=== PATIENT | female | born 1970 | race Caucasian/White ===

== ENCOUNTER 2016-09-30 14:15 | Observation (INO) ==
--- NOTE | 2016-09-30 15:04 | Emergency Department Note ---
Disposition Clinical Impression: Shortness of breath Chest pain Qualifiers: Chest pain type: unspecified Qualified Code(s): R07.9 - Chest pain, unspecified Disposition: Admitted As Inpatient Condition: Good Referrals: NO,PCP [Primary Care Provider] - Forms: ED Satisfaction Letter Time of Disposition: 17:58 SOB HPI - General Chief Complaint: ED Shortness of Breath/Dyspnea Stated Complaint: RON Time Seen by Provider: 09/30/16 14:42 Source: patient Mode of arrival: ambulatory Limitations: no limitations Nursing Notes Reviewed: Yes Vital Signs Reviewed: Yes - History of Present Illness 46-year-old female pack per day smoker presents with difficulty breathing. States over past 4 days she has had difficulty breathing with pleuritic chest pain. She denies any productive cough. Feels like something's there but she is not able to bring it up. She denies any recent fever, nausea, vomiting, abdominal pain. She is concerned because her brother recently had a stroke and a blood clot in his lower leg. She states roughly a few weeks ago she noticed a knot in her right lower leg believing that made been a clot as well. Since then that is resolved. She denies any calf tenderness. She denies any oral contraceptive use, long-distance travel, recent surgery or hospitalization. She is unemployed and does live a sedentary lifestyle. No known active cancer or hemoptysis. Her heart rate on arrival is 106. She is not hypoxic. She is low risk per Wells score of 1.5. D dimer ordered. 2 view chest x-ray of basic labs with the EKG. Patients in agreement with this plan. - Related Data Allergies Allergy/AdvReac Type Severity Reaction Status Date / Time Erythromycin Base Allergy Difficulty Verified 09/30/16 14:20 Breathing All systems ED: reviewed and negative except as stated. Constitutional: Denies: fever, chills Cardiovascular: Reports: chest pain. Denies: dyspnea on exertion Respiratory: Reports: cough, dyspnea Gastrointestinal: Denies: abdominal pain, nausea, vomiting, diarrhea Genitourinary: Denies: urgency, dysuria Musculoskeletal: Denies: back pain Integumentary: Denies: rash, abrasion Neurological: Denies: headache Psychiatric: Reports: anxiety Past Medical History - Past Medical History Attestation: Yes The following information was validated with the patient. Source: patient Medical history: Reports: no medical history Psychiatric history: Reports: anxiety, depression - Social History Smoking Status: Current every day smoker Alcohol use: Reports: none Drug use: Reports: none Physical Exam - General Limitations: no limitations General appearance: alert, in no apparent distress - Head Head exam: atraumatic, normocephalic, normal inspection - Eye Eye exam: Present: normal appearance, PERRL, EOMI - ENT ENT exam: normal exam, normal oropharynx, mucous membranes moist - Neck Neck exam: Present: normal inspection, full ROM, trachea midline - Chest Chest inspection: Present: normal inspection, symmetric chest wall rise. Absent : tenderness - Respiratory Respiratory exam: Present: normal lung sounds bilaterally, other (Poor respiratory effort due to discomfort) - Cardiovascular Cardiovascular exam: Present: regular rate, normal rhythm, normal heart sounds. Absent: systolic murmur, diastolic murmur - Abdominal Exam Abdominal exam: Present: soft, Non-Tender, normal bowel sounds. Absent: tenderness, distention, guarding, rebound, rigidity - Extremities Exam Extremities exam: Present: normal inspection, full ROM, normal capillary refill. Absent: tenderness, pedal edema, calf tenderness - Back Exam Back exam: Present: normal inspection, full ROM. Absent: tenderness, CVA tenderness (R), CVA tenderness (L) - Neurological Exam Neurological exam: Present: alert, oriented X3 - Psychiatric Psychiatric exam: Present: normal affect, normal mood - Skin Skin exam: Present: warm, dry, intact, normal color Course - Reevaluation(s) Reevaluation #1: CT of the chest was sub optimal to evaluate for pulmonary embolism and inconclusive. Areas of questionable filling defects. Recommend rescan in the right clinical setting and likely admission. Patient continues to have chest pain and shortness of breath. She is not hypoxic. Heart rate has come down. Give her one dose of Lovenox 1 milligram per kilogram and admit for further observation. Patients in agreement with this plan. Chest X-Ray 09/30/16 14:57 IMPRESSION: No evidence for acute cardiopulmonary process. D/ / Cayden Pisano MD / Cayden Pisano MD Interpreting Provider: Cayden Pisano MD Chest CTA 09/30/16 15:38 IMPRESSION: 1. Suboptimal CTA for evaluation of pulmonary embolism. Questionable filling defects in segmental branches bilaterally may simply represent artifact due to mixing of contrast. If pretest probability for pulmonary embolism is high, consider repeat CTA after 8-12 hours or a follow-up nuclear medicine V/Q scan. 2. Mild ground-glass attenuation at the bilateral lung apices. Atelectasis or mild interstitial change may be considered. Developing pneumonitis considered less likely. D/ / Forrest Ojeda MD / Forrest Ojeda MD Interpreting Provider: Forrest Ojeda MD Time: 17:58 - Consultations Consultation #1: Spoke with on-call hospitalist aly Winn to admit for chest pain, dyspnea , and suspected PE. No further orders at this time Time: 18:07 Vital Signs Temperature 98.5 F 09/30/16 14:16 Pulse Rate 106 09/30/16 14:16 Respiratory Rate 16 09/30/16 14:16 Blood Pressure 138/84 09/30/16 14:16 O2 Sat by Pulse Oximetry 97 09/30/16 14:16 Temperature 98.5 F 09/30/16 14:16 Pulse Rate 71 09/30/16 17:48 Respiratory Rate 16 09/30/16 17:48 Blood Pressure 119/71 09/30/16 17:48 O2 Sat by Pulse Oximetry 2 09/30/16 17:48 Oxygen Delivery Oxygen Delivery Room Air Shortness of Breath/Dyspnea - Medical Records Medical records reviewed: Yes I reviewed the patient's medical records. - Lab Data Lab results reviewed: Yes I reviewed the patient's lab results. Result diagrams: 09/30/16 15:14 09/30/16 15:14 Lab Results 09/30/16 09/30/16 09/30/16 Range/Units 15:14 15:14 15:14 WBC 9.3 (4.3-11.1) K/mcL RBC 4.47 (3.82-4.97) M/mcL Hgb 13.5 (11.5-15.4) g/dL Hct 40.1 (35.3-44.9) % MCV 89.7 (83.0-100.0) fL MCH 30.2 (28.0-33.3) pg MCHC 33.7 (31.6-35.5) g/dL RDW 12.5 (11.5-14.5) % Plt Count 191 (140-400) K/mcL MPV 9.2 L (9.4-12.4) fL Immature Gran % 0.3 (0-4) % Seg Neutrophils % 67.0 % Lymphocytes % 24.3 % Monocytes % 7.3 % Eosinophils % 0.8 % Basophils % 0.3 % Neutrophils # 6.3 (1.6-8.9) K/mcL Lymphocytes # 2.3 (0.6-4.6) K/mcL Monocytes # 0.7 (0.0-1.3) K/mcL Eosinophils # 0.1 (0.0-0.6) K/mcL Basophils # 0.0 (0.0-0.2) K/mcL Immature Plt Fraction 2.2 (1.1-6.1) % D-Dimer 1687 H (0-500) ng/mLFEU Sodium 137 (136-145) mEq/L Potassium 4.0 (3.5-4.5) mEq/L Chloride 105 (98-109) mEq/L Carbon Dioxide 27 (19-29) mEq/L BUN 8 (7-20) mg/dL Creatinine 0.85 (0.57-1.11) mg/dL Est GFR ( Amer) > 60 (> 60) Est GFR (Non-Af Amer) > 60 (> 60) BUN/Creatinine Ratio 9 (6-26) Glucose 134 H (70-99) mg/dL Calculated Osmolality 284 (280-300) Calcium 8.8 (8.6-10.8) mg/dL - Radiology Data Radiology results reviewed: Yes I reviewed the patient's radiology results. Chest X-Ray 09/30/16 14:57 IMPRESSION: No evidence for acute cardiopulmonary process. D/ / Cayden Pisano MD / Cayden Pisano MD Interpreting Provider: Cayden Pisano MD Chest CTA 09/30/16 15:38 IMPRESSION: 1. Suboptimal CTA for evaluation of pulmonary embolism. Questionable filling defects in segmental branches bilaterally may simply represent artifact due to mixing of contrast. If pretest probability for pulmonary embolism is high, consider repeat CTA after 8-12 hours or a follow-up nuclear medicine V/Q scan. 2. Mild ground-glass attenuation at the bilateral lung apices. Atelectasis or mild interstitial change may be considered. Developing pneumonitis considered less likely. D/ / Forrest Ojeda MD / Forrest Ojeda MD Interpreting Provider: Forrest Ojeda MD - EKG Data EKG attestation: Yes I reviewed and interpreted this EKG. EKG results narrative: EKG performed 1447, normal sinus rhythm 98 bpm normal axis good R-R wave progression, no ST elevations or depression, no T wave inversion. Intervals are within normal limits. No old EKG for comparison. No acute ischemic changes.
[2016-09-30 15:20] LABS: Basophils % 0.3 %; Eosinophils # 0.1 K/mcL (0.0-0.6); Eosinophils % 0.8 %; Hematocrit 40.1 % (35.3-44.9); Hemoglobin 13.5 g/dL (11.5-15.4); Immature Granulocytes % 0.3 % (0-4); Immature Platelets 2.2 % (1.1-6.1); Lymphocytes # 2.3 K/mcL (0.6-4.6); Lymphocytes % 24.3 %; Mean Corpuscular HGB Conc 33.7 g/dL (31.6-35.5); Mean Corpuscular Hemoglobin 30.2 pg (28.0-33.3); Mean Corpuscular Volume 89.7 fL (83.0-100.0); Mean Platelet Volume 9.2 fL (9.4-12.4); Monocytes # 0.7 K/mcL (0.0-1.3); Monocytes % 7.3 %; Neutrophils # 6.3 K/mcL (1.6-8.9); Platelet Count 191 K/mcL (140-400); Red Blood Count 4.47 M/mcL (3.82-4.97); Red Cell Distribution Width 12.5 % (11.5-14.5)
[2016-09-30 15:44] LABS: BUN/Creatinine Ratio 9 (6-26); Blood Urea Nitrogen 8 mg/dL (7-20); Calcium 8.8 mg/dL (8.6-10.8); Carbon Dioxide 27 mEq/L (19-29); Chloride 105 mEq/L (98-109); Glucose 134 mg/dL (70-99); Osmolality,Calculated 284 (280-300); Sodium 137 mEq/L (136-145); eGFR For African Americans > 60 (> 60); eGFR For Non-African Americans > 60 (> 60)
[2016-09-30] MEDS ORDERED: *HR* Enoxaparin 120 MG/0.8 ML SYRINGE SQ STA (17:54)
--- NOTE | 2016-09-30 17:57 | Emergency Department Note ---
START Narrative - START START: I examined this patient and my medical decision-making was reviewed with the GYM MANAGER/PA/Advanced Practice Nurse/Resident Physician. I agree with the documented findings, disposition and treatment plan as described except to the extent set forth below. CT was inconclusive for pulmonary embolus. There were areas that were concerning for possible PE. Based on her symptoms and chief complaint I feel it best we admit the patient and start her on Lovenox and they can repeat a CT scan tomorrow or do a VQ scan. She also needs evaluated for this chest pain.
[2016-09-30 18:32] LABS: INR 1.1; Prothrombin Time 11.7 Seconds (9.4-12.1)
[2016-09-30 18:34] LABS: Activated Partial Thrombo Time 26.4 Seconds (26.0-36.0)
[2016-09-30] MEDS ORDERED: Acetaminophen 325 MG TABLET PO PRN (20:46)
[2016-09-30] MEDS ORDERED: Naloxone 0.4 MG/ML INJ IVP PRN (20:46)
[2016-09-30] MEDS ORDERED: Ondansetron 4 MG/2 ML VIAL IVP PRN (20:46)
--- NOTE | 2016-09-30 21:41 | Internal Med History&Physical ---
<Eleazar Nolen - Last Filed: 09/30/16 21:47> Date of Encounter: 09/30/16 Time of Encounter: 21:31 Assessment and Plan (1) Pulmonary embolism Current visit: Yes Status: Suspected Suspected. History is strongly suspicious given her shortness of breath that woke her up out of sleep, pleuritic chest pain, smoking history, obesity, brother with blood clots. CTA of the chest was inconclusive. Given that suspicion is high for blood clots we will treat with Lovenox 1 mg/kg twice a day. We will obtain bilateral lower extremity ultrasound, and if negative will repeat CTA in the morning. Patient is hemodynamically stable. Qualifiers: Pulmonary embolism type: other Chronicity: unspecified Acute cor pulmonale presence: without acute cor pulmonale Qualified Code(s): I26.99 - Other pulmonary embolism without acute cor pulmonale (2) Tobacco abuse Current visit: Yes Status: Acute Strongly suggested to the patient that she quit smoking. Will order nicotine patch. (3) DVT prophylaxis Current visit: Yes Status: Acute Patient is fully anticoagulated with Lovenox 1 mg/kg twice a day. Internal Medicine - H&P: HPI Chief complaint: Dyspnea Admitted From: Emergency Dept Plans for Post Hospital Care: Home History of present illness: Ms. Mattson is a 46 year old female with no significant medical history presents with shortness of breath and pleuritic chest pain. Patient states that her symptoms began all of a sudden 4 days ago and her shortness of breath woke her up from sleep. She reports shortness of breath at rest and with exertion. She reports feeling of phlegm in her throat that she cannot clear. She reports pain in the center of her chest when taking a deep breath or coughing. She denies sputum production. She reports that she had a "knot" in her right lower extremity that she describes as a small hard circular area on her calf with some mild surrounding erythema. She denies pain in her calf, leg swelling or erythema. She is a smoker, does not use oral contraceptives she denies hemoptysis, history of malignancy, recent surgery, recent travel or long car rides or plane rides. Past Med Surg Social Fam HX - Past Medical History Medical history: no medical history Psychiatric history: anxiety, depression - Past Surgical History Surgical History: , hysterectomy - Social History Smoking Status: Current every day smoker Alcohol use: none Drug use: none - Family History Father History Unknown: Yes Brother Living Status: Still Living Hx Family Medical Disorders: Yes (Stroke/Blood clot) Internal Medicine - H&P: Meds RX: No Known Home Drugs 09/30/16 [History] Allergies Erythromycin Base Allergy (Verified 09/30/16 14:20) Difficulty Breathing All Systems PM: A 10-system review of systems was performed and is negative for pertinent findings except as documented above in the HPI. - Constitutional Constitutional: no chills, no fever(s) - EENT Eyes: no blurry vision, no change in vision Nose, mouth and throat: no sinus pain, no sinus pressure, no sore throat - Cardiovascular Cardiovascular ROS IM: chest pain, dyspnea, dyspnea on exertion, orthopnea, no edema, no syncope - Respiratory Respiratory: cough, dyspnea, dyspnea on exertion, pain on inspiration, chest congestion, pain with cough, no hemoptysis, no wheezing, no excessive phlegm production, no change in phlegm color - Gastrointestinal Gastrointestinal: no abdominal pain, no diarrhea, no hematemesis, no hematochezia, no melena, no nausea, no vomiting - Genitourinary Genitourinary: no dysuria, no urinary frequency, no urinary hesitancy, no urinary incontinence - Musculoskeletal Musculoskeletal ROS IM: no numbness, no tingling - Integumentary Integumentary IM: new lesions, no erythema - Neurological Neurological ROS: no dizziness, no numbness, no tremor(s) - Psychiatric Psychiatric: no anxiety, no depression - Hematologic/Lymphatic Hematologic/Lymphatic: no easy bleeding, no easy bruising - Constitutional Vitals: Temp Pulse Resp BP Pulse Ox 98.7 F 84 15 128/87 95 09/30/16 19:41 09/30/16 19:41 09/30/16 19:41 09/30/16 19:41 09/30/16 19:41 General appearance: Present: A&O X 3, pleasant, no acute distress - Head Head exam: Present: atraumatic, normal inspection, normocephalic - Eye Eye exam: Present: EOMI, PERRL - ENT ENT exam: Present: mucous membranes moist - Respiratory Respiratory exam: Present: CTAB. Absent: rales, rhonchi, wheezes - Cardiovascular Cardiovascular exam: Present: RRR. Absent: gallop, rubs, systolic murmur - GI/Abdominal GI/Abdominal exam: Present: normal bowel sounds, soft. Absent: distended, tenderness - Extremities Exam Extremities exam: Present: warm. Absent: calf tenderness, pedal edema, tenderness Additional comments: Homans sign negative - Neurological Exam Neurological exam: Present: alert, CN II-XII intact, oriented X3, no focal deficits - Skin Skin exam: Present: dry, intact, warm Internal Med - H&P Results - Labs CBC & Chem 7: 09/30/16 15:14 09/30/16 15:14 <Antonio Virk - Last Filed: 09/30/16 23:03> Date of Encounter: 09/30/16 - Constitutional Vitals: Temp Pulse Resp BP Pulse Ox 98.7 F 84 15 128/87 95 09/30/16 19:41 09/30/16 19:41 09/30/16 19:41 09/30/16 19:41 09/30/16 19:41 General appearance: Present: A&O X 3, pleasant, no acute distress - Eye Eye exam: Present: PERRL. Absent: scleral icterus - Neck Neck exam general surgery: Present: full ROM, supple. Absent: tenderness - Respiratory Respiratory exam: Present: CTAB. Absent: rales, rhonchi, wheezes Additional comments: + splinting and pain with deep inspiration - Cardiovascular Cardiovascular exam: Present: RRR, +S1, +S2. Absent: diastolic murmur, systolic murmur - GI/Abdominal GI/Abdominal exam: Present: soft. Absent: tenderness - Extremities Exam Extremities exam: Present: normal capillary refill. Absent: calf tenderness, joint swelling - Back Exam Back exam: Present: normal inspection. Absent: CVA tenderness (L), CVA tenderness (R) - Neurological Exam Neurological exam: Present: no focal deficits - Psychiatric Psychiatric exam: Present: normal affect, normal mood - Skin Skin exam: Present: dry, warm. Absent: rash Internal Med - H&P Results - Labs CBC & Chem 7: 09/30/16 15:14 09/30/16 15:14 - Diagnostic Studies Chest x-ray Status: image reviewed by me (negative) - Attending Attestation I discussed the patient [place], PMH, ROS, lab data, and exam findings with Dr. Nolen. I then saw and examined patient independently as well. Patient history is very concerning for PE. Exam is also concerning with +splinting and pleuritic CP with deep inspiration. I suspect there is a familial clotting disorder given her brother (42 yo) with massive stroke due to clot and patient' s presenting history. Furthermore, her mother recently due to cardiac arrest -- no autopsy performed. I agree with full anticoagulation for now while pursuing LE Dopplers followed by repeat CTA if necessary. If it is determined that patient truly has PE/DVT, I recommend outpatient hypercoagulable work-up by hematology. Other than my comments noted above and exam findings, I agree with Dr. Nolen's assessment and plan.
[2016-09-30] MEDS: Nicotine 21 MG PATCH.TD24 TD SCH (22:03)
[2016-10-01] MEDS ORDERED: *HR* Enoxaparin 120 MG/0.8 ML SYRINGE SQ SCH (06:00)
[2016-10-01 06:03] LABS: Basophils % 0.6 %; Eosinophils # 0.2 K/mcL (0.0-0.6); Eosinophils % 3.1 %; Hematocrit 41.2 % (35.3-44.9); Hemoglobin 13.5 g/dL (11.5-15.4); Immature Granulocytes % 0.3 % (0-4); Lymphocytes # 2.8 K/mcL (0.6-4.6); Lymphocytes % 40.6 %; Mean Corpuscular HGB Conc 32.8 g/dL (31.6-35.5); Mean Corpuscular Hemoglobin 30.1 pg (28.0-33.3); Mean Platelet Volume 9.4 fL (9.4-12.4); Monocytes # 0.7 K/mcL (0.0-1.3); Monocytes % 9.7 %; Neutrophils # 3.1 K/mcL (1.6-8.9); Platelet Count 180 K/mcL (140-400); Red Blood Count 4.48 M/mcL (3.82-4.97); Red Cell Distribution Width 12.8 % (11.5-14.5); Segmented Neutrophils % 45.7 %
[2016-10-01 06:04] LABS: INR 1.1; Prothrombin Time 11.6 Seconds (9.4-12.1)
[2016-10-01 06:07] LABS: Activated Partial Thrombo Time 25.4 Seconds (26.0-36.0)
[2016-10-01 06:20] LABS: BUN/Creatinine Ratio 9 (6-26); Blood Urea Nitrogen 8 mg/dL (7-20); Calcium 8.7 mg/dL (8.6-10.8); Carbon Dioxide 28 mEq/L (19-29); Chloride 104 mEq/L (98-109); Glucose 131 mg/dL (70-99); Magnesium 2.1 mg/dL (1.6-2.6); Osmolality,Calculated 286 (280-300); Potassium 4.3 mEq/L (3.5-4.5); Sodium 138 mEq/L (136-145); eGFR For African Americans > 60 (> 60); eGFR For Non-African Americans > 60 (> 60)
[2016-10-01] MEDS: Nicotine 21 MG PATCH.TD24 TD SCH (08:40)
[2016-10-01 08:44] VITALS: BP 117/80
--- NOTE | 2016-10-01 10:19 | Discharge Summary ---
<Jerman Baptiste - Last Filed: 10/01/16 11:50> Date of Encounter: 10/01/16 Time of Encounter: 09:45 - Discharge Diagnosis (1) Pulmonary embolism Priority: Primary Status: Suspected Comments: Patient has a suspected pulmonary embolism. History is strongly suspect suspicious. She states that she has pleuritic chest pain, and she had tachycardia upon admission. -She also has an older brother with a history of blood clots. -CTA of the chest was inconclusive. -D dimer elevated at 1687. -V/Q scan performed, and revealed high probability of PE. -Patient was treated with Lovenox 1 mg/kg twice a day. -Patient will start taking Xarelto today. Qualifiers: Pulmonary embolism type: other Chronicity: unspecified Acute cor pulmonale presence: without acute cor pulmonale Qualified Code(s): I26.99 - Other pulmonary embolism without acute cor pulmonale (2) Shortness of breath Priority: Secondary Status: Acute Comments: Patient admitted to having shortness of breath this morning, although she states shortness of breath has improved since her admission. She denies having a productive cough, but she feels as if something is stuck in the throat. (3) Chest pain Priority: Secondary Status: Acute Qualifiers: Chest pain type: unspecified Qualified Code(s): R07.9 - Chest pain, unspecified (4) DVT prophylaxis Priority: Secondary Status: Acute Comments: Doppler deomstrated DVT in lower leg. -Patient prescribed Xarelto 15 mg BID x 21 days, then 20 mg once daily x 9 days. -Follow up with PCP, possible workup for oncology. - Discharge Medications Home Medications: No Known Home Drugs 09/30/16 [History] Allergies/Adverse Reactions: Allergies Erythromycin Base Allergy (Verified 09/30/16 14:20) Difficulty Breathing Procedures/tests Complete & Pending: Procedures Performed prior 72 hours Category Date Time Status VQ Scan [NM pul vent and perfuse] [NM] Stat Exams 10/01/16 07:44 Ordered Venous Doppler [EV venous imaging LE BI] Routine Y 09/30/16 21:12 Ordered Date of admission: 09/30/16 18:18 Primary care physician: PCP NO Discharging clinician: Jerman Baptiste Anticipated date of discharge: 10/01/16 - Patient Status Disposition: Home, Self-Care Condition: Good Functional capacity at discharge: independent ambulation - Discharge Instructions Instructions: Rivaroxaban (By mouth), Pulmonary Embolism (DC), Deep Venous Thrombosis (DC) Follow Up With: Ann Donahue CNP [Advanced Practice Nurse] - 10/06/16 2:30 pm (Please follow up as schedule..and arrive at 2pm to fill out some papers and bring your medecine bottles with you. and please try not to miss the appointment to get established a pcp. and call if you can not make to the appt.) NO,PCP [Primary Care Provider] - - Diet and Activity Activity: increase activity as tolerated Diet: advance to your usual diet Hospital course: Ms. Mattson is a 46 year old female who initially presented to the hospital with the chief complaint of difficulty breathing. She is a pack per day smoker. She stated that over the past 4 days she had had difficulty breathing with pleuritic chest pain. Patient did not have a productive cough. She stated that she felt as if something was stuck in the back of her throat like phlegm, but she was unable to bring it up. She denied having any fever, nausea , vomiting, or abdominal pain. When patient was admitted to the hospital she expressed concern because her brother recently had a stroke and a blood clot in his lower leg. She admitted that several weeks back, she had noticed a knot in her right lower leg and believed to be a clot. Since then this has resolved. When she was admitted, she had no calf tenderness. She denied using oral contraceptives, sitting for long periods of time, long distance travel, or recent surgery or hospitalization. She does however admit to living a sedentary lifestyle, and is unemployed. Patient had no active cancer. Upon arrival her heart rate was 106. D-dimer was ordered. CTA was performed to rule out the possibility of a pulmonary embolus. Results of CTA were inconclusive. CTA was suboptimal for evaluating PE. It showed questionable filling defects in the segmental branches bilaterally. D Dimer was elevated at 1687. On physical examination this morning, patient still stated that she had some shortness of breath, as well as pain when she took a deep breath and that radiates to her back. She denies having any chest pain at this time. She states that her shortness of breath has slightly improved since her admission to the hospital. Doppler ultrasound of the leg was positive for DVT. VQ scan was ordered, and revealed high probability of PE. Patient will be sent home on Xarelto 15 mg PO BID for the first 21 days, then 20 mg once daily afterward. Time spent discussing smoking cessation with patient: 3 to 10 minutes - Time Spent with Patient Total time spent providing and/or coordinating discharge services: Greater than 30 minutes - Constitutional Vitals: Temp Pulse Resp BP Pulse Ox 98.7 F 88 14 117/80 96 10/01/16 08:42 10/01/16 08:42 10/01/16 08:42 10/01/16 08:42 10/01/16 08:44 General appearance: Present: A&O X 3, pleasant, no acute distress - Respiratory Respiratory exam: Absent: decreased breath sounds, prolonged expiratory phase, rales, stridor, wheezes, tachypnea Additional comments: Patient admits to having some shortness of breath, as well as pain on inspiration. This pain radiates to her back. - Cardiovascular Cardiovascular exam: Present: RRR, +S1, +S2. Absent: diastolic murmur, gallop, rubs, systolic murmur - Psychiatric Psychiatric exam: Present: normal affect, normal mood - Skin Skin exam: Present: dry, warm - VTE Reasons for not Prescribing Prophylaxis: Not indicated-Anticoagulated or INR therapeutic <Harpreet Mar - Last Filed: 10/01/16 12:55> Date of Encounter: 10/01/16 Procedures/tests Complete & Pending: Procedures Performed prior 72 hours Category Date Time Status VQ Scan [NM pul vent and perfuse] [NM] Stat Exams 10/01/16 11:02 Completed EV venous imaging LE BI Routine Y 10/01/16 21:12 Completed Date of admission: 09/30/16 18:18 Primary care physician: PCP NO Hospital course: Ms. Mattson is a 46 year old female - Time Spent with Patient Total time spent providing and/or coordinating discharge services: - Constitutional Vitals: Temp Pulse Resp BP Pulse Ox 98.7 F 88 14 117/80 96 10/01/16 08:42 10/01/16 08:42 10/01/16 08:42 10/01/16 08:42 10/01/16 08:44 - Attending Attestation I examined this patient and my medical decision-making was reviewed with the Resident Physician on 10/01/16. I agree with the documented findings, disposition and treatment plan as described except to the extent set forth below. Patient seen and reviewed 46 Y/O F with Active tobacco abuse, Obesity presented with chest pain and diagnosed with unprovoked sub-segmental PE, with no R heart strain as well as RLE Popliteal vein DVT. Patient endorsed strong family history. Physical exam unremarkable. Labs and Imaging reviewed: CBC/Chem unremarkable, Elevated D-dimer. CTA- inconclusive but highly suspicious of PE, VQ scan high probability of PE, LE Doppler with Right popliteal vein DVT. Agree with Xarelto from today, received one dose of lovenox in-patient, patient with unprovoked PE/DVT, will need anticoagulation for life. Follow up with PCP for thrombohpilia work up due to family history, it will not change the line of management. Tobacco cessation encouraged. Rest of details as in Resident Physician's documentation which I agree with
--- NOTE | 2016-10-01 17:16 | Venous Imaging Report ---
LE Venous Duplex Patient Name:Renetta Mattson Order Number:[id number] Procedure Date:10/01/2016 Date:1970Age:46 yrs Gender:Female Location:[facility] Room #: 2A14 Color Maker Dyer:Missy Chua RDCS Referring MD:Eleazar Nolen DO shear assembler:None Reading MD:Senthil Harmon MD Primary Indications:DVT/PE Secondary Indications: Risk Factors Yes/No Anticoagulants Yes Smoking Current Yes Impressions: Acute deep venous thrombosis is present in the right popliteal and gastrocnemius veins. Normal right lower extremity superficial venous exam. Normal left lower extremity deep and superficial venous exam. Recommendations: After imaging the patient returned to their room. Test completed on 10/01/2016 at 10:37:00 am. Critical findings reported to Pt RN by phone at 10:40:00 am on 10/01/2016 by Missy Chua RDCS. Findings Venous Duplex Results: Right: Venous imaging of the lower extremity reveals full patency and normal vessel compressibility of the right distal iliac, right common femoral, right superficial femoral, right posterior tibial, right peroneal, right great saphenous and right lesser saphenous. Doppler signals in the evaluated veins were normal. The right popliteal demonstrates an incompressible vein. Flow was absent and it did not augment. The right gastrocnemius demonstrates an incompressible vein. Flow was absent and it did not augment. Left: Venous imaging of the lower extremity reveals full patency and normal vessel compressibility of the left distal iliac, left common femoral, left superficial femoral, left popliteal, left posterior tibial, left peroneal, left great saphenous and left lesser saphenous. Doppler signals in the evaluated veins were normal. Prior Study: No prior study available for comparison. Lower Extremity Venous Duplex Side Vein Compress Spontaneous Flow Augment Diameter (cm) Depth (cm) Right Distal Iliac Normal Yes Phasic Yes Right Common Femoral Normal Yes Phasic Yes Right Superficial Femoral Normal Yes Phasic Yes Right Popliteal None no Absent no Right Posterior Tibial Normal Yes Phasic Yes Right Peroneal Normal Yes Phasic Yes Right Gastrocnemius None no Absent no Right Great Saphenous Normal Yes Phasic Yes Right Lesser Saphenous Normal Yes Phasic Yes Left Distal Iliac Normal Yes Phasic Yes Left Common Femoral Normal Yes Phasic Yes Left Superficial Femoral Normal Yes Phasic Yes Left Popliteal Normal Yes Phasic Yes Left Posterior Tibial Normal Yes Phasic Yes Left Peroneal Normal Yes Phasic Yes Left Great Saphenous Normal Yes Phasic Yes Left Lesser Saphenous Normal Yes Phasic Yes Updated by Senthil Harmon MD on 10/01/2016 5:11:50 PM electronically signed on 10/01/2016 5:12:28 PM with status of Final
== END 2016-10-01 12:30 | disposition home or self-care (01) ==
LOC: 2ANU 14:15 → EMEROO 14:15 → 2ANU 18:45
PROVIDERS: ADMIT Pediatrics; ATTEND Internal Medicine